=== PATIENT | female | born 1995 | race Hispanic/Latino ===

== ENCOUNTER 2023-11-20 12:07 | Emergency (ER) | payer OTHER ==
[2023-11-20] MEDS ORDERED: Ibuprofen 200 MG TAB ONE (12:27)
[2023-11-20] MEDS ORDERED: Ondansetron ODT 4 MG TAB ONE (12:28)
== END 2023-11-20 13:28 | disposition home or self-care (01) ==
LOC: CSHERS 12:07
DX: N64.4 Mastodynia (principal); F17.290 Nicotine dependence, other tobacco product, uncomplicated
CPT/HCPCS: Q0162

== ENCOUNTER 2024-05-01 11:24 | Emergency (ER) | payer OTHER ==
[2024-05-01] MEDS ORDERED: Cyclobenzaprine 10 MG TAB ONE (12:05)
[2024-05-01] MEDS ORDERED: Ketorolac Tromethamine 30 MG (1 mL) VIAL ONE (12:05)
== END 2024-05-01 12:16 | disposition home or self-care (01) ==
LOC: CSHERS 11:24
DX: M54.2 Cervicalgia (principal); F17.290 Nicotine dependence, other tobacco product, uncomplicated
CPT/HCPCS: 96372; 99283; J1885

== ENCOUNTER 2024-05-21 12:05 | Emergency (ER) | payer OTHER ==
[2024-05-21] MEDS ORDERED: Ketorolac Tromethamine 30 MG (1 mL) VIAL ONE (13:28)
[2024-05-21] MEDS ORDERED: Dexamethasone 10 MG/ML VIAL ONE (13:28)
== END 2024-05-21 13:55 | disposition home or self-care (01) ==
LOC: CSHERS 12:05
DX: R07.81 Pleurodynia (principal); F17.290 Nicotine dependence, other tobacco product, uncomplicated
CPT/HCPCS: 87428; 96372; 99284; J1100; J1885

== ENCOUNTER 2024-11-28 21:30 | Emergency (ER) | payer OTHER ==
[2024-11-28 22:02] LABS: Glucose, Urine (Dipstick) 250 mg/dL (Negative); Leukocyte Negative (Negative); Protein, Urine (Dipstick) 30 mg/dl (Neg-Trace); Specific Gravity, Urine 1.025 (1.005-1.030)
[2024-11-28] MEDS ORDERED: Droperidol 5 MG/2 ML VIAL ONE (22:21)
[2024-11-28 22:24] LABS: Bacteria/HPF Rare-Few HPF (None Seen); CAUTI Indications for Culture Dysuria,urgency,freq; RBC/HPF 0-3 HPF (0-3); WBC/HPF 0-3 HPF (0-3)
[2024-11-28 22:25] LABS: Urine Culture Reflex No No
[2024-11-28 22:44] LABS: #Basophils 0.07 10x3/uL (0.0-0.2); #Eosinophils 0.50 10x3/uL (0.0-0.5); #Monocytes 0.58 10x3/uL (0.0-1.1); #Neutrophils 7.23 10x3/uL (1.5-8.4); %Basophils 0.6 % (0.0-2.0); %Eosinophils 4.5 % (0.0-6.0); %Lymphocytes 23.7 % (18.0-47.0); %Monocytes 5.3 % (0.0-10.0); %Neutrophils 65.5 % (40.0-75.0); Hematocrit 35.9 % (34.9-44.5); Hemoglobin 12.3 g/dL (12.0-15.5); Mean Corpuscular Hemoglobin 29.6 pg (27.0-33.0); Mean Corpuscular Volume 86.5 fL (81.6-98.3); Platelet Count 223 10x3/uL (150-450); Red Blood Cell (RBC) Count 4.15 10x6/uL (3.90-5.03); White Blood Cell (WBC) Count 11.03 10x3/uL (3.5-10.5)
[2024-11-28 23:01] LABS: ALT (SGPT) 41 U/L (Less than 34); AST (SGOT) 25 U/L (11-34); Albumin 3.8 g/dL (3.1-4.5); Alkaline Phosphatase 81 U/L (40-110); Anion Gap 14 mmol/L (10-20); BUN (Urea Nitrogen) 17 mg/dL (7.0-18.7); Bilirubin, Total 0.4 mg/dL (0.3-1.2); Calc. Creatinine Clearance 0 mL/min (70-130); Calcium 8.8 mg/dL (7.8-10.44); Carbon Dioxide 22 mmol/L (22-29); Chloride 103 mmol/L (98-107); Globulin 3.6 g/dL (2.4-3.5); Glucose 225 mg/dL (70-105); Lipase 36 U/L (8-78); Potassium 3.9 mmol/L (3.5-5.1); Sodium 135 mmol/L (136-145)
[2024-11-28 23:02] LABS: Pregnancy Test - Urine (BHCG) Negative (Negative); Pregu Control Background? CLEAR/WHITE (CLR/WHITE); Pregu Control Bar Appear? YES (CONTROL BAR)
== END 2024-11-28 23:40 | disposition home or self-care (01) ==
LOC: CSHERS 21:30
DX: R10.30 Lower abdominal pain, unspecified (principal); R11.2 Nausea with vomiting, unspecified; E11.8 Type 2 diabetes mellitus with unspecified complications; F17.290 Nicotine dependence, other tobacco product, uncomplicated; Z79.84 Long term (current) use of oral hypoglycemic drugs; Z55.6 Problems related to health literacy
CPT/HCPCS: 80053; 81001; 81025; 83690; 85025; 96374; J1790